=== PATIENT | female | born 1970 | race Caucasian/White ===

== ENCOUNTER 2023-02-28 12:03 | Outpatient (CLI) | payer OTHER | END 2023-02-28 12:04 | disposition home or self-care (01) | LOC: BICMAMMO 12:03 | PROVIDERS: ATTEND Nurse Practitioner Family | DX: Z12.31 Encounter for screening mammogram for malignant neoplasm of breast (principal); N63.10 Unspecified lump in the right breast, unspecified quadrant | CPT/HCPCS: 77063; 77067 ==

== ENCOUNTER 2023-03-09 09:18 | Outpatient (CLI) | payer OTHER | END 2023-03-09 09:19 | disposition home or self-care (01) | LOC: BICMAMMO 09:18 | PROVIDERS: ATTEND Nurse Practitioner Family | DX: N63.11 Unspecified lump in the right breast, upper outer quadrant (principal) | CPT/HCPCS: G0279 ==

== ENCOUNTER 2023-05-09 13:07 | Outpatient (CLI) | payer OTHER ==
[2023-05-09 14:18] LABS: #Basophils 0.1 10x3/uL (0.0-0.2); #Eosinphils 0.1 10x3/uL (0.0-0.5); #Monocytes 0.4 10x3/uL (0.0-1.1); #Neutrophils 3.5 10x3/uL (1.5-8.4); %Basophils 1.1 % (0.0-2.0); %Eosinophils 1.9 % (0.0-6.0); %Lymphocytes 29.4 % (18.0-47.0); %Neutrophils 60.4 % (40.0-75.0); Hematocrit 41.3 % (34.9-44.5); Hemoglobin 14.5 g/dL (12.0-15.5); Mean Corpuscular HGB CONC 35.1 g/dL (32.0-36.0); Mean Corpuscular Volume 91.2 fl (81.6-98.3); Mean Platelet Volume 10.6 fl (7.4-10.4); Platelet Count 178 10x3/uL (150-450); RBC Distribution Width 11.9 % (11.5-14.5); Red Blood Cell (RBC) Count 4.53 10x6/uL (3.90-5.03); White Blood Cell (WBC) Count 5.7 10x3/uL (3.5-10.5)
[2023-05-09 14:43] LABS: Anion Gap 13 mmol/L (10-20); BUN (Urea Nitrogen) 7 mg/dL (9.8-20.1); Calc. Creatinine Clearance 0 mL/min (70-130); Calcium 9.7 mg/dL (7.8-10.44); Carbon Dioxide 26 mmol/L (22-29); Chloride 102 mmol/L (98-107); Estimated GFR 79; Glucose 94 mg/dL (70-105); Potassium 3.9 mmol/L (3.5-5.1); Sodium 137 mmol/L (136-145)
== END 2023-05-09 13:08 | disposition home or self-care (01) ==
LOC: LABBT 13:07
PROVIDERS: ATTEND Specialist
DX: Z01.812 Encounter for preprocedural laboratory examination (principal); C80.1 Malignant (primary) neoplasm, unspecified
CPT/HCPCS: 80048; 85025

== ENCOUNTER 2023-05-10 07:26 | Day surgery (SDC) | payer OTHER ==
[2023-05-09 13:46] VITALS: BMI 22.6
[2023-05-10] MEDS ORDERED: Sodium Chloride 0.9% 100 ML ONE (09:19)
[2023-05-10] MEDS ORDERED: Ketorolac Tromethamine 30 MG/ML VIAL ONE (09:19)
[2023-05-10] MEDS ORDERED: CEFAZOLIN 2 GM VIAL ONE (09:19)
[2023-05-10] MEDS ORDERED: Acetaminophen 500 MG TAB ONE (09:21)
[2023-05-10] MEDS ORDERED: fentaNYL 50 mcg/mL 1 mL Vial ONE (12:10)
[2023-05-10] MEDS ORDERED: Isosulfan Blue 50 MG/5 ML VIAL ONE (12:16)
[2023-05-10] MEDS ORDERED: EPINEPHrine 1 MG/ML VIAL ONE ×3 (12:16→12:26)
[2023-05-10] MEDS ORDERED: Bupivacaine 0.25% HCL 30 ML VIAL ONE (12:17)
[2023-05-10] MEDS ORDERED: Lidocaine 2% PF 5 ML VIAL ONE (12:19)
[2023-05-10] MEDS ORDERED: Ondansetron PF 4 MG/2 ML Vial ONE (12:46)
[2023-05-10] MEDS ORDERED: Lidocaine 1% PF 5 ML VIAL ONE (12:46)
[2023-05-10] MEDS ORDERED: PROPOFOL 200 MG/20 ML VIAL ONE (12:46)
[2023-05-10] MEDS ORDERED: ePHEDrine Sulfate 50 MG/10 ML VIAL ONE (12:46)
== END 2023-05-10 16:33 | disposition home or self-care (01) ==
LOC: SDC 07:26
PROVIDERS: ATTEND Specialist
PROC: 0HBT0ZZ Excision of Right Breast, Open Approach (ICD-10-PCS; principal; 2023-05-10)
PROC: 07B50ZZ Excision of Right Axillary Lymphatic, Open Approach (ICD-10-PCS; principal; 2023-05-10)
DX: C50.811 Malignant neoplasm of overlapping sites of right female breast (principal); Z17.0 Estrogen receptor positive status [ER+]; Z88.2 Allergy status to sulfonamides
CPT/HCPCS: 76098; 78195; 88307; 88342; A9541; C1713; J0171; J1885; J2001; J2405; J2704; J3010; J3490; Q9968; S0020